=== PATIENT | female | born 2000 | race Two or more races ===

== ENCOUNTER 2023-01-11 17:37 | Emergency (ER) | payer OTHER, SELFPAY ==
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
[2023-01-11 17:41] VITALS: BP 121/74; PULSE 82; RESP 17; TEMP 36.8; O2SAT 100
[2023-01-11 17:46] VITALS: BP 121/74; PULSE 90; RESP 18; TEMP 36.7; O2SAT 99; BMI 23.3
[2023-01-11] MEDS: Acetaminophen 325 MG TABLET 975 MG PO (18:01)
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
[2023-01-11 20:20] VITALS: BP 96/64; PULSE 77; RESP 16; TEMP 37.2; O2SAT 96
--- NOTE | 2023-01-11 20:22 | PC.NURSE ---
pt calm and cooperative. pt mother at bedside.vss. skin pwd. pt reports 0/10 pain at this time. pt ambulatory at discharge. pt provided with discharge packet. pt verbalized understanding of discharge plan
== END 2023-01-11 20:31 | disposition home or self-care (01) ==
PROVIDERS: Emergency Provider Student in an Organized Health Care Education/Training Program; PCP Nurse Practitioner Family
DX: S09.90XA Unspecified injury of head, initial encounter (principal); V43.62XA Car passenger injured in collision with other type car in traffic accident, initial encounter; Y93.89 Activity, other specified; Y92.411 Interstate highway as the place of occurrence of the external cause; Y99.9 Unspecified external cause status
CPT/HCPCS: 70450; 72125; 99284